=== PATIENT | female | born 1960 | race Caucasian/White ===

== ENCOUNTER → 2020-02-24 | Outpatient (CLI) | payer OTHER ==
--- NOTE | 2020-02-24 15:10 | RAD ---
2 view study of both knees Clinical indications: Bilateral knee pain Left knee: No acute fracture or dislocation or lytic process is seen. There is mild joint space narrowing and spurring of the medial tibial femoral joint compartment. No significant left knee joint effusion is seen. Right knee: No acute fracture or dislocation or lytic process is seen. There is mild degenerative joint space narrowing and spurring of the medial tibiofemoral joint compartment. No significant right knee joint effusion is seen. 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 Electronically signed by: Lopez Bryan MD (02/24/2020 2:57 PM) [id number]
== END ==
LOC: PMG 13:51
PROVIDERS: ATTEND Registered Nurse
DX: M17.0 Bilateral primary osteoarthritis of knee (principal)
CPT/HCPCS: 73560